=== PATIENT | female | born 1950 | race Caucasian/White ===

== ENCOUNTER 2016-10-15 11:04 | Emergency (ER) | payer MEDICARE ==
[2016-10-15 11:29] VITALS: BP 113/59
--- NOTE | 2016-10-15 14:16 | UC ---
Lower Extremity/Ankle HPI - HPI Summary HPI Summary: Right foot pain that started after working out and lasted a few weeks. Pain resolved but after walking a long distance 3 days ago the Sx returned and bothering her at this time and concerned. Has had plantar fasciitis and does not feel like that at this time. - History of Current Complaint Chief Complaint: UCLowerExtremity Stated Complaint: RIGHT FOOT/ANKLE PAIN Time Seen by Provider: 10/15/16 14:09 Hx Obtained From: Patient ?: No Onset/Duration: Sudden Onset, Gradual Onset Aggravating Factor(s): Standing Alleviating Factor(s): Rest Able to Bear Weight: Yes - Risk Factors Gout Risk Factors: Negative DVT Risk Factors: Negative Septic Arthritis Risk Factor: Negative - Allergies/Home Medications Allergies/Adverse Reactions: Allergies Allergy/AdvReac Type Severity Reaction Status Date / Time No Known Allergies Allergy Verified 10/15/16 11:22 Home Medications: Home Medications Naproxen Sodium 220 mg PO ONCE PRN 10/15/16 [History Confirmed 10/15/16] PMH/Surg Hx/FS Hx/Imm Hx Previously Healthy: Yes Endocrine History Of: Denies: Diabetes, Thyroid Disease Cardiovascular History Of: Reports: Cardiac Disorders - bypass and stent 2010, Hypertension Respiratory History Of: Denies: COPD, Asthma GI/ History Of: Denies: Ulcer - Surgical History Surgical History: Yes Surgery Procedure, Year, and Place: bypass and stents. clint. appy - Family History Known Family History: Positive: None - Social History Occupation: Retired Lives: With Family Alcohol Use: Rare Substance Use Type: None Smoking Status (MU): Former Smoker When Did the Patient Quit Smoking/Using Tobacco: - Immunization History Most Recent Influenza Vaccination: 2016 Review of Systems Constitutional: Negative Skin: Negative Eyes: Negative ENT: Negative Respiratory: Negative Cardiovascular: Negative Gastrointestinal: Negative Genitourinary: Negative Motor: Negative Neurovascular: Negative Musculoskeletal: Arthralgia Neurological: Negative Psychological: Negative All Other Systems Reviewed And Are Negative: Yes Physical Exam Triage Information Reviewed: Yes Appearance: Well-Appearing, No Pain Distress, Well-Nourished Vital Signs: Initial Vital Signs Temp 97.7 F 10/15/16 11:24 Pulse 54 10/15/16 11:24 Resp 20 10/15/16 11:24 BP 113/59 10/15/16 11:24 Pulse Ox 99 10/15/16 11:24 Vital Signs Reviewed: Yes Neck: Positive: 1 Musculoskeletal Exam: Normal, Other - antalgic gait Musculoskeletal: Positive: Strength Intact, ROM Intact, No Edema, Other: - right dorsal proximal foot pain to palpation. no effusion or ecchymosis. no skin color changes. Neurological Exam: Normal Psychological Exam: Normal Skin Exam: Normal Lower Extremity Course/Dx - Differential Dx/Diagnosis Differential Diagnosis/HQI/PQRI: Fracture (Closed), Sprain, Strain Provider Diagnoses: Right foot pain / Osteoarthritis / Bone SPur Discharge - Discharge Plan Condition: Good Disposition: HOME Patient Education Materials: Arthralgia (ED) Referrals: Kiel Flores MD [Primary Care Provider] - 3 Days Allie Curiel MD [Medical Doctor] - 5 Days (If your symptoms persist or worsen ( orthopedic referral)) Additional Instructions: You should consider starting Physical Therapy for your foot / ankle pain . As we discussed there was no fracture seen on your xray today.
--- NOTE | 2016-10-15 14:54 | RAD ---
Indication: RIGHT foot pain since September 18, 2016 dorsal aspect near the ankle. Comparison: None. Technique: AP, lateral, and oblique views RIGHT foot. Report: Normal articular alignment. Negative for fracture. Advanced osteophytosis at the talocrural joint and dorsal margin of the talonavicular joint. Moderately large plantar fascial origin bone spur and smaller Achilles tendon insertion bone spur. Soft tissue swelling about the ankle and hind through mid foot. IMPRESSION: Talocrural and transverse tarsal joint osteoarthritis. Heel spurs.
== END 2016-10-15 14:49 | disposition home or self-care (01) ==
LOC: UCCORT 11:04
DX: M19.071 Primary osteoarthritis, right ankle and foot (principal); M77.31 Calcaneal spur, right foot; I10 Essential (primary) hypertension; I25.10 Atherosclerotic heart disease of native coronary artery without angina pectoris; Z95.1 Presence of aortocoronary bypass graft; Z95.5 Presence of coronary angioplasty implant and graft; Z87.891 Personal history of nicotine dependence
CPT/HCPCS: 99211; G0463